=== PATIENT | male | born 1960 | race African-American/Black ===

== ENCOUNTER 2017-12-14 08:07 | Emergency (ER) | payer SELFPAY ==
[~2017-12-14] VITALS: Ht 175.3 cm; Wt 90.0 kg
[2017-12-14] MEDS ORDERED: SODIUM CHLORIDE 0.9% 1,000 ML IV ONE (08:18)
[2017-12-14 09:33] LABS: CHLORIDE 108 mEq/L (98-107)
[2017-12-14 09:35] LABS: HEMATOCRIT. 36.5 % (42.0-52.0); HEMOGLOBIN. 11.9 g/dL (14.0-18.0); INR 1.1; MEAN CORPUSCULAR HEMOGLOBIN 26.5 pg (28.0-32.0); MEAN CORPUSCULAR VOLUME 81.2 fL (80.0-94.0); PLATELET 280 x1000/uL (130-400); PROTHROMBIN TIME 10.9 sec (9.4-11.6); RED CELL DISTRIBUTION WIDTH 15.6 % (11.6-14.6)
[2017-12-14 09:37] LABS: ETHANOL BLOOD < 10 mg/dL
[2017-12-14 09:43] LABS: TROPONIN I 0.03 ng/mL (0.00-0.04)
[2017-12-14 09:48] LABS: *AMPHETAMINES SCREEN URINE NEGATIVE (NEGATIVE); *BARBITURATES SCREEN URINE NEGATIVE (NEGATIVE); *BENZODIAZEPINES SCREEN URINE PRESUMTIVE POSITIVE (NEGATIVE); *COCAINE SCREEN URINE PRESUMTIVE POSITIVE (NEGATIVE)
[2017-12-14 09:49] LABS: CANNABINOID URINE SCREEN PRESUMTIVE POSITIVE (NEGATIVE); METHADONE URINE SCREEN NEGATIVE (NEGATIVE); OPIATES URINE SCREEN NEGATIVE (NEGATIVE); PHENCYCLIDINE URINE SCREEN NEGATIVE (NEGATIVE)
[2017-12-14 09:57] LABS: PLATELET ESTIMATE NORMAL
[2017-12-14 10:38] VITALS: BP 127/83
== END 2017-12-14 10:42 | disposition home or self-care (01) ==
LOC: ER 08:24
DX: G93.40 Encephalopathy, unspecified (principal); F14.10 Cocaine abuse, uncomplicated; F12.10 Cannabis abuse, uncomplicated; R79.1 Abnormal coagulation profile; Y08.89XA Assault by other specified means, initial encounter; Y93.89 Activity, other specified; Y92.89 Other specified places as the place of occurrence of the external cause; Y99.8 Other external cause status
CPT/HCPCS: 36415; 70450; 71045; 80048; 80305; 80307; 80329; 84484; 85025; 85610; 85730; 93005; 96360; 96361; 99285; G0482; J7030; P9612